=== PATIENT | female | born 1955 | race Caucasian/White ===

== ENCOUNTER 2017-05-26 07:47 | Emergency (ER) | payer MEDICAID ==
[~2017-05-26] VITALS: Ht 170.2 cm; Wt 57.1 kg
[~2017-05-26 07:47] MED LIST: ALPR-475 PO; AMPH20TA2 PO; ESZO2TAB34 PO; LAMO25TA5 PO; QUET50TA5 PO; ZIPR20CA2 PO
[2017-05-26 07:48] VITALS: BP 149/70
[2017-05-26] MEDS ORDERED: MAGNESIUM CITRATE 300ML ORAL SOL PO ONE (08:30)
[2017-05-26 08:42] LABS: BLOOD UREA NITROGEN 17 mg/dL (7-18)
[2017-05-26] MEDS ORDERED: MAGNESIUM CITRATE 300ML ORAL SOL ONE (09:08)
== END 2017-05-26 09:37 | disposition home or self-care (01) ==
LOC: ED 08:37
DX: K59.00 Constipation, unspecified (principal); R10.32 Left lower quadrant pain; R10.30 Lower abdominal pain, unspecified
CPT/HCPCS: 36415; 74022; 80048; 81003; 85025; 99285

== ENCOUNTER 2017-06-03 08:07 | Emergency (ER) | payer MEDICAID ==
[~2017-06-03] VITALS: Ht 170.2 cm; Wt 55.9 kg
[2017-06-03 10:06] VITALS: BP 112/83
== END 2017-06-03 10:08 | disposition home or self-care (01) ==
LOC: ED 08:56
DX: K59.00 Constipation, unspecified (principal)
CPT/HCPCS: 74000; 99283

== ENCOUNTER 2017-06-20 10:24 | Emergency (ER) | payer MEDICAID ==
[~2017-06-20] VITALS: Ht 170.2 cm; Wt 55.0 kg
[2017-06-20 11:06] LABS: HEMATOCRIT 42.3 % (34.6-47.8); HEMOGLOBIN 13.8 g/dL (11.7-16.4); WHITE BLOOD COUNT 5.9 x10^3/uL (3.4-10)
[2017-06-20 11:19] LABS: ASPARTATE AMINO TRANSFERASE 36 U/L (15-37); BLOOD UREA NITROGEN 12 mg/dL (7-18)
[2017-06-20 11:50] VITALS: BP 126/78
== END 2017-06-20 12:01 | disposition home or self-care (01) ==
LOC: ED 11:45
DX: K56.0 Paralytic ileus (principal)
CPT/HCPCS: 36415; 74020; 80053; 85025; 93005; 99285

== ENCOUNTER 2017-08-17 08:06 | Emergency (ER) | payer MEDICAID ==
[~2017-08-17] VITALS: Ht 167.6 cm; Wt 55.6 kg
[~2017-08-17 08:06] MED LIST changes: +ESZO2TAB22 PO; -ESZO2TAB34 PO
[2017-08-17 08:18] VITALS: BP 142/78
[2017-08-17] MEDS ORDERED: IBUPROFEN 200 MG TABLET ONE (09:08)
[2017-08-17] MEDS ORDERED: IBUPROFEN 200 MG TABLET PO ONE (09:30)
== END 2017-08-17 09:13 | disposition home or self-care (01) ==
LOC: ED 09:02
DX: B02.9 Zoster without complications (principal)
CPT/HCPCS: 99283

== ENCOUNTER 2018-01-16 12:33 | Emergency (ER) | payer MEDICAID ==
[~2018-01-16] VITALS: Ht 157.5 cm; Wt 71.0 kg
[2018-01-16 12:44] VITALS: BP 132/87
== END 2018-01-16 13:04 | disposition home or self-care (01) ==
LOC: ED 12:55
DX: S01.91XD Laceration without foreign body of unspecified part of head, subsequent encounter (principal); X58.XXXD Exposure to other specified factors, subsequent encounter
CPT/HCPCS: 99281

== ENCOUNTER 2018-02-12 05:10 | Emergency (ER) | payer MEDICAID ==
[~2018-02-12] VITALS: Ht 167.6 cm; Wt 57.3 kg
[2018-02-12] MEDS ORDERED: DIPH,PERTUSS(ACELL),TET VAC/PF 0.5 ML IM-VACC ONE ×2 (05:26→06:00)
[2018-02-12] MEDS ORDERED: LIDOCAINE-MPF 1%, 5ML ONE ×2 (05:26→07:29)
[2018-02-12] MEDS ORDERED: MORPHINE SULFATE 4 MG/ML, 1ML ONE ×2 (05:26→05:57)
[2018-02-12] MEDS ORDERED: ONDANSETRON 2MG/ML, 2ML ONE (05:26)
[2018-02-12] MEDS ORDERED: MORPHINE SULFATE 4 MG/ML, 1ML IVPush PRN (05:30)
[2018-02-12] MEDS ORDERED: DIPHTHERIA-TETANUS ADULT 0.5ML IM-VACC ONE (05:30)
[2018-02-12] MEDS ORDERED: ONDANSETRON 2MG/ML, 2ML IVPush ONE (05:30)
[2018-02-12] MEDS ORDERED: SODIUM CHLORIDE FLUSH 10ML SYR IVF ONE (05:30)
[2018-02-12] MEDS ORDERED: LIDOCAINE-MPF 1%, 5ML INFIL ONE (05:30)
[2018-02-12 08:00] VITALS: BP 145/80
[2018-02-12] MEDS ORDERED: BACITRACIN ZINC OINT 500U/GM, 0.9 GM ONE (08:07)
== END 2018-02-12 08:45 | disposition home or self-care (01) ==
LOC: ED 05:32
DX: S91.312A Laceration without foreign body, left foot, initial encounter (principal); X58.XXXA Exposure to other specified factors, initial encounter; Y93.89 Activity, other specified; Y92.410 Unspecified street and highway as the place of occurrence of the external cause; Y99.8 Other external cause status
CPT/HCPCS: 12034; 73610; 73630; 96374; 96375; 99284; J2405

== ENCOUNTER 2018-03-14 12:48 | Emergency (ER) | payer MEDICAID ==
[~2018-03-14] VITALS: Ht 167.6 cm; Wt 54.1 kg
[2018-03-14 13:05] VITALS: BP 116/74
== END 2018-03-14 14:04 | disposition home or self-care (01) ==
LOC: ED 13:55
DX: M79.672 Pain in left foot (principal); F31.9 Bipolar disorder, unspecified
CPT/HCPCS: 99281

== ENCOUNTER 2018-12-01 08:23 | Emergency (ER) | payer MEDICAID ==
[~2018-12-01] VITALS: Ht 170.2 cm; Wt 53.8 kg
[2018-12-01 08:25] VITALS: BP 138/72
--- NOTE | 2018-12-01 08:46 | NUR ---
REPORT FROM MYRNA OSWALD. ASSUMED CARE OF PATIENT AT THIS TIME.
--- NOTE | 2018-12-01 09:29 | NUR ---
NEW ORDERS, UA COLLECTED AND SENT TO LAB. PA AT BEDSIDE FOR PELVIC EXAM. PATIENT ANXIOUS/COOPERATIVE. NADN.
[2018-12-01 09:48] LABS: MICROSCOPIC AUTO
[2018-12-01 09:52] LABS: CULTURE INDICATED? YES
--- NOTE | 2018-12-01 10:30 | NUR ---
Patient/Caregiver given discharge instructions and they have confirmed that they understand the instructions. Patient ambulatory with steady gait.
== END 2018-12-01 10:32 | disposition home or self-care (01) ==
LOC: ED 09:44
DX: N81.12 Cystocele, lateral (principal)
CPT/HCPCS: 81001; 87086; 99283

== ENCOUNTER 2020-04-26 16:31 | Emergency (ER) | payer MEDICAID ==
[~2020-04-26] VITALS: Ht 170.2 cm; Wt 57.7 kg
[~2020-04-26 16:31] MED LIST changes: -ALPR-475 PO; +ALPR0.5T7 PO
[2020-04-26 16:33] VITALS: BP 132/68
== END 2020-04-26 17:13 | disposition home or self-care (01) ==
LOC: ED 16:33
DX: K08.89 Other specified disorders of teeth and supporting structures (principal); Z53.21 Procedure and treatment not carried out due to patient leaving prior to being seen by health care provider